=== PATIENT | female | born 1965 | race Caucasian/White ===

== ENCOUNTER 2017-08-02 15:50 | Outpatient (CLI) | payer BC ==
--- NOTE | 2017-08-02 16:16 | RAD ---
PA AND LATERAL CHEST X-RAY 08/02/17 HISTORY: Cough and congestion and fever for four weeks. COMPARISON: 02/17/10. FINDINGS: The cardiac silhouette and pulmonary vasculature are within normal limits. The lungs are clear. There has been no interval change from prior study. IMPRESSION: No acute cardiopulmonary process. POS: H
== END 2017-08-02 15:51 | disposition home or self-care (01) ==
LOC: MADRAD 15:50
PROVIDERS: ATTEND Family Medicine
DX: J18.0 Bronchopneumonia, unspecified organism (principal)
CPT/HCPCS: 71046